=== PATIENT | female | born 1945 | race Two or more races ===

== ENCOUNTER 2018-02-19 09:48 | Emergency (ER) | payer OTHER ==
[~2018-02-19] VITALS: Ht 165.1 cm; Wt 65.6 kg
[2018-02-19 09:54] VITALS: BP 138/79
== END 2018-02-19 11:48 | disposition home or self-care (01) ==
LOC: ED 11:30
DX: R05 Cough (principal); J02.9 Acute pharyngitis, unspecified; R11.10 Vomiting, unspecified
CPT/HCPCS: 71046; 87081; 87880; 99285

== ENCOUNTER 2020-11-01 04:32 | Emergency (ER) | payer MEDICARE ==
[~2020-11-01] VITALS: Ht 134.6 cm; Wt 68.0 kg
[2020-11-01] MEDS ORDERED: HYDROmorphone 1 MG/ML, 1ML INJ ONE ×2 (04:58→05:49)
[2020-11-01] MEDS ORDERED: HYDROmorphone 2 MG/ML, 1ML IVPush ONE (05:00)
[2020-11-01] MEDS ORDERED: HYDROmorphone 1 MG/ML, 1ML INJ IVPush ONE (05:00)
--- NOTE | 2020-11-01 05:05 | NUR ---
PT. MEDICATED PER MAR FOR PAIN. X-RAY TO FOLLOW. SON AT FOR SUPPORT.
--- NOTE | 2020-11-01 05:14 | NUR ---
X-RAY TO BS FOR IMAGING.
--- NOTE | 2020-11-01 06:09 | NUR ---
PT. APPEARS MORE COMFORTABLE AFTER 2ND DOSE OF PAIN MEDS. RESTING ON GUNEY WITH EYES CLOSED. RESPIRATIONS VISIBLE AND NON-LABORED. SON REMIANS AT FOR SUPPORT. PT. AND SON AWARE OF NEED TO REMAIN NPO AT THIS TIME.
--- NOTE | 2020-11-01 06:54 | NUR ---
PER DR. HUNG SLING NOT TO BE PLACED UNTIL HE GOES IN TO DISCUSS POC WITH PT. AND SON. DR. HUNG IN NOW TO DO SO.
--- NOTE | 2020-11-01 07:00 | NUR ---
REPORT TO JEREMY MONTES TO ASSUME CARE OF PT. POC DISCUSSED.
--- NOTE | 2020-11-01 07:06 | NUR ---
Report from JEREMY San. MD Harris at bedside discussing POC with pt, including plan to DC with sling.
[2020-11-01 08:39] VITALS: BP 153/70
== END 2020-11-01 08:42 | disposition home or self-care (01) ==
LOC: ED 08:35
DX: S42.214A Unspecified nondisplaced fracture of surgical neck of right humerus, initial encounter for closed fracture (principal); M79.89 Other specified soft tissue disorders; Z88.8 Allergy status to other drugs, medicaments and biological substances; X58.XXXA Exposure to other specified factors, initial encounter; Y93.89 Activity, other specified; Y92.89 Other specified places as the place of occurrence of the external cause; Y99.8 Other external cause status
CPT/HCPCS: 73020; 96374; 96376; 99285; J1170